=== PATIENT | female | born 1965 | race Hispanic/Latino ===

== ENCOUNTER 2018-11-12 17:58 | Emergency (ER) | payer OTHER ==
[~2018-11-12] VITALS: Ht 162.6 cm; Wt 80.7 kg
--- OUTSIDE RECORDS SUMMARY | 2018-11-12 18:01 | XMS REPORT ---
Author Author [facility] Address Unknown Phone Unavailable Care Team Providers Care Encoding Clerk Name Role Phone Unavailable Unavailable Problems This patient has no known problems. Allergies, Adverse Reactions, Alerts This patient has no known allergies or adverse reactions. Medications This patient has no known medications. Results Test Description Test Time Test Comments Text Results Atomic Results Result Comments RAD, LEG, TIBIA 2017-08-12 15:42:00 Reason for exam:->ANIMAL BITEIs the patient ?->NoShould this be performed at the bedside?->No FINAL REPORT RIGHT LEG 2 VIEWS HISTORY: Right leg pain status post animal bite FINDINGS: AP and lateral views of the right leg were obtained. No fracture, dislocation, or bony abnormalities are identified in the right leg. There is subcutaneous edema in the dorsal aspect of the proximal leg. No radiopaque foreign body is visualized. No right knee joint effusion. IMPRESSION: 1. No fracture or foreign body are visualized in the right leg. Signed: Kapil Francois Verified Date/Time: 08/12/2017 15:42:08 Reading Location: [facility] B1 [id number] Ortho Consult Reading Room
--- OUTSIDE RECORDS SUMMARY | 2018-11-12 18:01 | XMS REPORT | Clinical Summary ---
Author Author [facility] Address Unknown Phone Unavailable Care Team Providers Care Sheet Metal Apprentice Name Role Phone Malinda Patterson MD PCP Unavailable Allergies Comments Active Allergy Reactions Severity Noted Date Sulfamethoxazole-Trimetho Hives Medium 03/02/2016 prim Medications End Date Status Medication Sig Dispensed Refills Start Date Active metFORMIN (GLUCOPHAGE) Take 1,000 mg 0 1000 MG tablet by mouth 2 (two) times daily with breakfast and dinner. Active SUMATRIPTAN SUCCINATE Take by 0 (IMITREX ORAL) mouth. Active venlafaxine (EFFEXOR) Take 37.5 mg 0 37.5 MG tablet by mouth 2 (two) times daily. Active ibuprofen (ADVIL,MOTRIN) Take 800 mg 0 800 MG tablet by mouth every 6 (six) hours as needed for Pain. Active atorvastatin (LIPITOR) 20 Take 20 mg by 0 MG tablet mouth daily. Active aspirin 81 MG chewable Take 81 mg by 0 tablet mouth daily. Active acetaminophen-codeine Take 1 tablet 30 tablet 0 (TYLENOL #3) 300-30 mg by mouth 8 per tablet every 4 (four) hours as needed for Pain. Max Daily Amount: 6 tablets Active Problems Problem Noted Date Chronic cholecystitis 04/04/2016 Family History Medical History Relation Name Comments Heart disease Brother Diabetes Father Heart disease Father Hyperlipidemia Father Hypertension Father Arthritis Mother Cancer Mother Relation Name Status Comments Brother Father Mother Social History Date Tobacco Use Types Packs/Day Years Used Current Every Day Smoker Cigarettes 0.2 25 Smokeless Tobacco: Never Used Tobacco Cessation: Counseling Given: Yes Comments: 2-3 cigs per day. krames printed, to be given dos Alcohol Use Drinks/Week oz/Week Comments No Sex Assigned at Date Recorded Not on file Industry Job Start Date Occupation Not on file Not on file Not on file Travel End Travel History Travel Start No recent travel history available. Last Filed Vital Signs Not on file Plan of Treatment Not on file Results Not on fileafter 11/11/2017 Insurance Payer Benefit Subscriber ID Type Phone Address Plan / Group [employer] - [employer] xxxxxxxxxxx HMO/POS NETWORK Advance Directives For more information, please contact: [address] [address] Date Inactivated Comments Code Status Date Activated 04/04/2016 5:40 PM Full Code 04/04/2016 8:38 AM This code status was determined by: Patient
--- NOTE | 2018-11-12 18:40 | Diagnostic Imaging Report ---
Examination: Single AP view of the chest. COMPARISON: None. INDICATION: shortness of breath DISCUSSION: Lines/tubes: None. Lungs: The lungs are well inflated and clear. No pneumonia or pulmonary edema. Pleura: No pleural effusion or pneumothorax. Heart and mediastinum: The heart and the mediastinum are unremarkable. Bones and soft tissues: No acute bony abnormalities. IMPRESSION: 1. No acute cardiopulmonary abnormalities. Signed by: Dr. Zen Pérez M.D. on 11/12/2018 6:37 PM
--- NOTE | 2018-11-12 18:53 | NUR ---
REPORT TO RANDI CARRANZA ALL QUESTIONS ANSWERED
[2018-11-12 19:09] VITALS: BP 118/74
== END 2018-11-12 19:25 | disposition home or self-care (01) ==
LOC: FSED 17:58
DX: R07.89 Other chest pain (principal); I10 Essential (primary) hypertension; E11.9 Type 2 diabetes mellitus without complications; E78.5 Hyperlipidemia, unspecified
CPT/HCPCS: 71045; 80053; 84484; 85025; 93005; 99284